=== PATIENT | female | born 1940 | race Caucasian/White ===

== ENCOUNTER → 2017-01-20 | Outpatient (CLI) | payer MEDICARE, OTHER ==
[2017-01-20 10:05] LABS: CH 29.8; CHCM 33.2; HCT 44.3 % (34.0-46.0); HDW 2.74; HGB 14.5 gm/dL (11.4-16.0); MCH 29.5 pg (25.0-35.0); MCHC 32.6 g/dL (31.0-37.0); MCV 90.4 fL (80.0-100.0); Mean Platelet Volume 6.8; RBC 4.91 m/uL (3.80-5.40); RDW 13.1 % (11.5-15.5); WBC 5.2 k/uL (3.8-10.6)
[2017-01-20 10:24] LABS: Appearance,Urine Clear (Clear); Bilirubin,Urine Negative (Negative); Glucose,Urine (UA) Negative (Negative); Ketones,Urine Negative (Negative); Leukocyte Esterase,Urine Negative (Negative); Mucus,Urine Rare /hpf; Nitrite,Urine Negative (Negative); Particle Count 1926; Protein,Urine Trace (Negative); RBC,Urine 8 /hpf (0-5); Squamous Epithelial Cell,Urine <1 /hpf (0-4); UA Billing (MACRO vs. MICRO) MICRO; WBC,Urine 1 /hpf (0-5)
[2017-01-20 10:34] LABS: ALT 30 U/L (9-52); AST 23 U/L (14-36); Alkaline Phosphatase 82 U/L (38-126); Anion Gap 8 mmol/L; Blood Urea Nitrogen 15 mg/dL (7-17); Calcium 9.1 mg/dL (8.4-10.2); Carbon Dioxide 27 mmol/L (22-30); Chloride 105 mmol/L (98-107); Cholesterol 203 mg/dL (<200); Glucose 86 mg/dL (74-99); HDL Cholesterol 61 mg/dL (40-60); Non-African American GFR(MDRD) 56 (>60 ml/min/1.73 sqM); Potassium 4.8 mmol/L (3.5-5.1); Sodium 140 mmol/L (137-145); Total Bilirubin 0.6 mg/dL (0.2-1.3); Total Protein 6.9 g/dL (6.3-8.2)
== END | disposition home or self-care (01) ==
LOC: LABWHC1 09:18
PROVIDERS: ATTEND Internal Medicine
DX: E03.9 Hypothyroidism, unspecified (principal); I10 Essential (primary) hypertension
CPT/HCPCS: 36415; 80053; 80061; 81001; 84439; 84443; 85027